=== PATIENT | female | born 1970 | race Caucasian/White ===

== ENCOUNTER 2016-04-20 10:45 | Outpatient (RCR) | payer OTHER ==
[2016-02-27 20:11] VITALS: BP 93/59
[~2016-04-20 10:45] MED LIST: CELECOXIB200 M1 PO; NORCO 325 MG-51 TAB PO
[2016-08-10] MEDS ORDERED: TRAMADOL 50 MG TAB (00:13)
== END 2016-06-06 10:22 | disposition home or self-care (01) ==
LOC: PT 10:45
DX: M25.511 Pain in right shoulder (principal)
CPT/HCPCS: G0283-GP

== ENCOUNTER → 2016-08-09 | Emergency (ER) | payer OTHER ==
[~2016-08-09] MED LIST changes: +TRAMADOL 50 MG TAB
[2016-08-10 01:05] VITALS: BP 106/70
== END ==
LOC: ED 21:03
DX: R10.31 Right lower quadrant pain (principal); K35.2 Acute appendicitis with generalized peritonitis; K35.3 Acute appendicitis with localized peritonitis; R11.2 Nausea with vomiting, unspecified; R19.7 Diarrhea, unspecified
CPT/HCPCS: J1885; J2270; J2405; J2543; J7030

== ENCOUNTER → 2017-01-08 | Outpatient (CLI) | payer BC ==
[2016-08-10 01:05] VITALS: BP 106/70
== END ==
LOC: RAD 08:52
DX: M17.12 Unilateral primary osteoarthritis, left knee (principal); M25.462 Effusion, left knee

== ENCOUNTER → 2017-01-09 | Outpatient (CLI) | payer BC ==
[2016-08-10 01:05] VITALS: BP 106/70
== END ==
LOC: RAD 09:09
DX: M25.462 Effusion, left knee (principal)

== ENCOUNTER → 2018-12-05 | Outpatient (CLI) | payer OTHER ==
[2016-08-10 01:05] VITALS: BP 106/70
== END ==
LOC: RAD 14:18
DX: M25.462 Effusion, left knee (principal); Z98.890 Other specified postprocedural states

== ENCOUNTER → 2023-01-24 | Outpatient (CLI) | payer BC ==
[2023-01-24 16:33] LABS: BASO # 0.04 K/mm3 (0.02-0.10); EOS # 0.26 K/mm3 (0.04-0.40); EOS % 2.4 % (1.0-5.0); HEMOGLOBIN 13.1 g/dL (12.5-16.0); LYMPH# 3.77 K/mm3 (1.50-4.00); MEAN CELL VOLUME 88 fl (78-100); MEAN CORPUSCULAR HEMOGLOBIN 29 pg (27-31); MEAN CORPUSCULAR HGB CONC 33 g/dL (33-37); MONO # 0.56 K/mm3 (0.20-0.80); NEU # 6.37 K/mm3 (1.40-6.50); PLATELET COUNT 284 K/mm3 (130-400); RED BLOOD COUNT 4.53 M/mm3 (4.10-5.30); RED CELL DISTRIBUTION WIDTH 12.5 % (11.5-14.5)
[2023-01-24 16:46] LABS: ALBUMIN 4.2 g/dL (3.5-5.0)
[2023-01-24 16:47] LABS: CALCIUM 9.4 mg/dL (8.3-10.5)
[2023-01-24 16:49] LABS: TOTAL PROTEIN 7.2 g/dL (6.4-8.3)
[2023-01-24 16:51] LABS: TOTAL BILIRUBIN 0.7 mg/dL (0.2-1.2)
== END ==
LOC: LAB 16:17
PROVIDERS: Internal Medicine
DX: Z00.00 Encounter for general adult medical examination without abnormal findings (principal); L40.9 Psoriasis, unspecified; K21.9 Gastro-esophageal reflux disease without esophagitis; M47.896 Other spondylosis, lumbar region; M51.36 Other intervertebral disc degeneration, lumbar region

== ENCOUNTER → 2023-06-13 | Outpatient (CLI) | payer BC | LOC: RAD 15:05 | DX: M47.27 Other spondylosis with radiculopathy, lumbosacral region (principal) ==

== ENCOUNTER → 2023-07-18 | Outpatient (CLI) | payer BC | LOC: RAD 16:42 | DX: M79.671 Pain in right foot (principal) ==

== ENCOUNTER → 2023-12-11 | Outpatient (CLI) | payer BC | LOC: RAD 10:16 | DX: I87.2 Venous insufficiency (chronic) (peripheral) (principal); I70.209 Unspecified atherosclerosis of native arteries of extremities, unspecified extremity ==

== ENCOUNTER → 2023-12-13 | Outpatient (CLI) | payer BC ==
[~2023-12-13] MED LIST changes: +Iohexol 350 - 100 ML VIAL IV ONE
== END ==
LOC: RAD 09:46
DX: I74.5 Embolism and thrombosis of iliac artery (principal); I70.8 Atherosclerosis of other arteries; I73.9 Peripheral vascular disease, unspecified
CPT/HCPCS: Q9967

== ENCOUNTER → 2024-06-09 | Outpatient (CLI) | payer BC ==
[~2024-06-09] MED LIST changes: +NS 100 ML IV ONE
== END ==
LOC: RAD 10:02
DX: I74.5 Embolism and thrombosis of iliac artery (principal); I70.201 Unspecified atherosclerosis of native arteries of extremities, right leg; Z95.820 Peripheral vascular angioplasty status with implants and grafts
CPT/HCPCS: Q9967